=== PATIENT | female | born 1980 | race Caucasian/White ===

== ENCOUNTER 2022-09-26 17:53 | Emergency (ER) | payer MEDICAID ==
[~2022-09-26] VITALS: Ht 167.6 cm; Wt 75.0 kg
[2022-09-26 18:06] VITALS: BP 132/87
[2022-09-26] MEDS ORDERED: VISCOUS LIDOCAINE 2% 15 ML UDC MM PRN (22:45)
[2022-09-26] MEDS ORDERED: KETOROLAC 30MG/ML VIAL IM ONE (22:45)
[2022-09-26] MEDS: BENZONATATE 100MG CAPSULE PO NR ×2 (22:45→23:14)
== END 2022-09-26 23:20 | disposition home or self-care (01) ==
LOC: ER 17:53
DX: B34.9 Viral infection, unspecified (principal); Z20.822 Contact with and (suspected) exposure to COVID-19
CPT/HCPCS: 71045; 81025; 87070; 87426; 87430; 87804; 96372; 99284; C9803; J1885